=== PATIENT | male | born 1945 | race Caucasian/White ===

== ENCOUNTER 2016-09-20 13:23 | Inpatient (IN) | payer MEDICARE ==
[~2016-09-20] VITALS: Ht 175.3 cm; Wt 89.6 kg
[2016-09-20] VITALS (10 sets, daily range): BP systolic 128–138; BP diastolic 56–86; PULSE 82–91; RESP 20–25; O2SAT 86–99
[~2016-09-20 13:23] MED LIST: ALBU18HF INH; BECL8.7A5 INH; BECL8.7A6 INH; IPRA3AMP INH; LORA0.5T PO; METO25TA6 PO; MORP20SO PO; ROPI0.252 PO; SCOP1PAT TD
--- NOTE | 2016-09-20 14:43 | ED.REPORT ---
HPI-Dyspnea / Wheezing Date of Service Sep 20, 2016 ED Provider: History of Present Illness: trouble breathing for 2 to 3 days. new coughing. primary care is jorge appointment on tuesday. Very short of breath Nursing Notes Stated Complaint: SOB,WEAKNESSS Chief Complaint: Respiratory Distress Nursing Notes Reviewed: Yes Allergies: Coded Allergies: Penicillins (Verified Allergy, Severe, NEAR A CHILD, 09/20/16) Scheduled Metoprolol Tartrate (Metoprolol Tartrate) 25 Mg Tablet 25 MG PO BID Morphine Sulfate Oral Soln (Morphine Sulfate Oral Soln) 20 Mg/5 Ml Solution 5- 20 MG PO Q1H Ropinirole (Ropinirole) 0.25 Mg Tablet 0.5 MG PO HS Scopolamine (Transderm-Scop) 1 Each Patch.td72 1 EACH TD Q72H Scheduled PRN Albuterol Sulfate (Ventolin HFA Inhaler) 200 Puff/18 Gm Inhaler 2 PUFFS INH PRN For Shortness of Breath Beclomethasone Dipropionate (Qvar) 8.7 Gm Aer.w.adap 1 PUFF INH PRN For Shortness of Breath Beclomethasone Dipropionate (Qvar) 8.7 Gm Aer.w.adap 1 PUFF INH BID PRN PRN For Shortness of Breath Ipratropium/Albuterol Sulfate (Iprat-Albut 0.5-3(2.5) mg/3 mL Inhalant Soln) 3 Ml Ampul.neb 1 DOSE INH 1-5XDaily PRN PRN For Shortness of Breath Lorazepam (Lorazepam) 0.5 Mg Tablet 0.5 MG PO TID PRN PRN For Anxiety General Time Seen by MD: 14:42 Chief Complaint Shortness of breath Hx Obtained From: Patient Sudden in Onset?: No Onset Occurred: 3 days ago Past Medical History Past Medical History Notes: PCP: Dr. Dos Santos in [facility] Past Medical History ho ? DVT (completely unclear) Records from PCP obtain indicate: Hypertension Hematuria Flank pain COPD on O2, CPAP The PCPs records indicate on a multitude of visits that the patient has declined workup, labs, and is aware he may have cancer but has insisted that he "will not accept any cancer treatment" notes also indicate the patient's not been taking any of his medications and that he "just wants to smoke and enjoy himself and uses oxygen when he needs it" The notes in the great "high probably of atherosclerotic cardiovascular disease-but he is refused any intervention, will only take nitroglycerin when necessary, and is refused a chest x-ray" Reports: Asthma, COPD (severe), Diabetes mellitus Past Surgical History Hiatal hernia Smoking History Former Smoker Social History Other Social History: Good social support, Occupation lives with , one story house Ambulatory Status Independent Review of Systems Basic Review of Systems Eyes: Vision NL, No discharge Hematologic: No bleeding, No bruising Psychiatric: Normal thought content Physical Exam Initial Vital Signs Vital Signs (First) Date Time Temp Pulse Resp B/P Pulse Ox O2 Delivery O2 Flow Rate FiO2 09/20/16 13:36 36.9 89 22 138/83 86 Room Air 09/20/16 14:44 2 Initial VS: Reviewed, Vital signs normal Head / Eyes: Atraumatic, Normocephalic, PERRL ENT: Mucous membranes moist, Conjunctiva normal, No scleral icterus Abdomen / GI: Soft, Non-tender, No guarding, No rebound, No distention Back: No CVA tenderness Lymphatic: No lymphadenopathy Extremities: Vascular intact, Neuro intact, No swelling, No tenderness Skin: Warm, Dry, No cyanosis Neurologic: Alert, Oriented, Nonfocal Psychiatric: Mood/affect normal, Behavior normal, Normal thought content General/Constitutional: Awake, Alert Distress / Hydration: Positive: Distress moderate Neck: Atraumatic, Supple, No meningismus, Full range of motion, No adenopathy Diminished Breath Sounds: Positive: Decreased bilateral decreased breath sounds thru out lung beaver. faint exp wheezing noted Cardiovascular: Heart rate NL, Regular rhythm, Heart sounds NL, No gallop ENT: Atraumatic, Airway patent, Mucous membranes moist, Pharynx NL, No peritonsillar abscess Abdomen: Atraumatic, Soft, Non-tender, McBurney's non-tender Interpretation & Diagnostics Lab Results Interpretation Result Diagram: 09/20/16 1554 09/20/16 1554 Test 09/20/16 15:54 White Blood Count 11.7th/mm3 (3.8-10.1) Red Blood Count 4.44mil/mm3 (4.40-5.80) Hemoglobin 12.8g/dL (13.8-17.2) Hematocrit 40.1% (41.0-50.0) Mean Corpuscular Volume 90.3fL (81-100) Mean Corpuscular Hemoglobin 28.8pg (27.0-35.0) Mean Corpuscular Hemoglobin Concent 31.9% (32.0-37.0) Red Cell Distribution Width 15.0% (12.3-15.4) Platelet Count 286bil/L (150-400) Neutrophils (%) (Auto) 76.9% (40-74) Lymphocytes (%) (Auto) 10.7% (14-46) Monocytes (%) (Auto) 11.3% (4-12) Eosinophils (%) (Auto) 0.7% (0-5) Basophils (%) (Auto) 0.2% (0-3) Sodium Level 141mEq/L (134-144) Potassium Level 3.3mEq/L (3.5-5.2) Chloride Level 101mEq/L (97-108) Carbon Dioxide Level 23mmol/L (18-29) Blood Urea Nitrogen 25mg/dL (8-27) Creatinine 0.56mg/dL (0.76-1.27) Estimat Glomerular Filtration Rate 152mL/min (>59) Glucose Level 204mg/dL (60-99) Lactic Acid Level 1.0mmol/L (0.4-2.0) Calcium Level 9.1mg/dL (8.5-10.1) Total Bilirubin 0.4mg/dL (0.0-1.2) Aspartate Amino Transf (AST/SGOT) 22U/L (0-50) Alanine Aminotransferase (ALT/SGPT) 25U/L (0-44) Alkaline Phosphatase 78U/L (25-160) Troponin T 0.182ug/L (0.0-0.011) Pro-B-Type Natriuretic Peptide 81442is/mL (0-376) Total Protein 6.6g/dL (6.4-8.4) Albumin 3.5g/dL (3.4-5.0) Procalcitonin 0.07ng/mL (0.00-0.08) X-Ray Chest Interpretation Chest Xray Interpretation: PROCEDURE: X-RAY CHEST ONE VIEW, PORTABLE ([id number]) INDICATIONS: 71 year-old male with shortness of breath, weakness and fatigue. TECHNIQUE: One view of the chest was acquired. COMPARISON: [facility], CR, XR CHEST 1VW (PORTABLE), 12/18/2015, 10:29. [facility], CR, CHEST 2VW, 05/09/2012, 14:08. [facility], CR, CHEST 2VW, 03/03/2012, 10:17. FINDINGS: Surgical changes and devices: None. Lungs and pleura: No pleural effusions or pneumothorax. Lungs are clear, except for patchy retrocardiac opacities. Mediastinum: Mediastinal contours appear normal. Heart size is normal. Bones and chest wall: No suspicious bony lesions. Overlying soft tissues appear unremarkable. IMPRESSION: Patchy retrocardiac atelectasis, aspiration, or early pneumonia. Dictated by: Roddy Rosado M.D. on 09/20/2016 at 14:57 Approved by: Roddy Rosado M.D. on 09/20/2016 at 14:58 Re-Eval/Medical Decision Med Decision/Clinical Course 71 year old male who appears sicker than what the numbers show. Extremely short of breath with inability to speak more than a few words without gasping for air. Patient desires treatment at this time for conditions which might be helped with medication management. Chest x-ray indicates a possible pneumonia, troponin is elevated as is BNP, discussed with Dr. Devi, admission is indicated. No sign of paniac attack but does have evidence of pneumonia and chf Discharge & Departure Impression: Primary Impression: Respiratory distress Additional Impression: Pneumonia Laterality: unspecified laterality Disposition: ADMITTED TO HOSPITAL Referrals: Edison Bernal MD (PCP) EDSupervising Provider for APC: Wil Devi MD copies to: Edison Bernal MD, Sue ARNP Sep 20, 2016 14:42 Mariza Orantes Sep 20, 2016 14:42
--- NOTE | 2016-09-20 15:00 | DRSVH ---
PROCEDURE: X-RAY CHEST ONE VIEW, PORTABLE ([id number]) INDICATIONS: 71 year-old male with shortness of breath, weakness and fatigue. TECHNIQUE: One view of the chest was acquired. COMPARISON: [facility], CR, XR CHEST 1VW (PORTABLE), 12/18/2015, 10:29. [facility], CR, CHEST 2VW, 05/09/2012, 14:08. [facility], CR, CHEST 2VW, 03/03/2012, 10:17. FINDINGS: Surgical changes and devices: None. Lungs and pleura: No pleural effusions or pneumothorax. Lungs are clear, except for patchy retrocar diac opacities. Mediastinum: Mediastinal contours appear normal. Heart size is normal. Bones and chest wall: No suspicious bony lesions. Overlying soft tissues appear unremarkable. IMPRESSION: Patchy retrocardiac atelectasis, aspiration, or early pneumonia. Dictated by: Roddy Rosado M.D. on 09/20/2016 at 14:57 Approved by: Roddy Rosado M.D. on 09/20/2016 at 14:58
[2016-09-20] MEDS ORDERED: levoFLOXacin Inj 750 MG in IV Premix 1 EACH IV ONE (15:10)
[2016-09-20] MEDS ORDERED: Albuterol-Ipratropium 3 mL Inhalation Solution NEB ONE (15:10)
[2016-09-20] MEDS ORDERED: MethylprednisoLONE Sodium Succinate 62.5 mg/mL 2 mL Inj IVPUSH ONE (15:10)
[2016-09-20 15:57] LABS: BASOPHILS % (AUTO) 0.2 % (0-3); EOSINOPHILS % (AUTO) 0.7 % (0-5); MONOCYTES % (AUTO) 11.3 % (4-12); Mean Corpuscular Hemoglobin 28.8 pg (27.0-35.0); Mean Corpuscular Volume 90.3 fL (81-100); NEUTROPHILS % (AUTO) 76.9 % (40-74); Platelet Count 286 bil/L (150-400)
[2016-09-20 16:41] LABS: TROPONIN T 0.182 ug/L (0.0-0.011)
[2016-09-20] MEDS ORDERED: Albuterol 2.5 mg/3 mL Inhalation Solution NEB PRN (16:45)
[2016-09-20] MEDS ORDERED: Alum-Mag Hydrox-Simeth 30 mL Suspension PO PRN (16:45)
[2016-09-20] MEDS ORDERED: Polyethylene Glycol (PEG) 17 Gm Powder PO PRN (16:45)
--- NOTE | 2016-09-20 17:57 | PCM.HPMED ---
Subjective Date of Service Sep 20, 2016 Primary Provider: Admitting Physician: Cristóbal Rob MD Primary Care Physician: Joe Lowry MD Attending Physician: Cristóbal Rob MD Admit Status: From the Emergency Department, Admit to [facility], [facility] Telemetry Chief Complaint: SOB History of Present Illness: This is a 71 year old man with past medical history significant for severe emphysema on 2-3 L home O2, hematuria, and diabetes mellitus who presented to [facility] ED today with severe shortness of breath. The patient noted increased production of sputum and worsening SOB since last Tuesday. Patient states that he has chronic SOB and cough, but the cough has been more productive with brown phlegm. He denies any chest pain and heaviness. Other associated symptoms include generalized weakness, worsening orthopnea, and weight loss. He denies any fever, chills, headache, dizziness, nausea, vomiting, or abdominal pain. Of note, patient was admitted to the hospital for similar symptoms in November 2015 and was discharged on hospice. He states that he really liked Hospice Care , but he was doing better and so he was discharged from Hospice after 6 months. Patient also has history painless hematuria but has refused a work up as he would not like to be evaluated for the probability of cancer and would not like any treatment for it. He is aware that his COPD is a terminal illness and discussed his belief in being able to end his life on his own terms and against prolonging it unnecessarily. He again stated that he would like to be DNR/DNI and would not like to have any invasive procedures or major interventions. Patient has chronic decreased oral intake, and has lost 30lbs in the last 6 months. In the ED his vitals were T 36.9 HR 89, RR 22, BP 138/83, 86% on RA, which improved to 92-99% on 2L NC. He was given 1 L NS bolus and started on Levaquin. CXR showed patchy retrocardiac atelectasis, aspiration, or early pneumonia. Review of Systems: A comprehensive review of systems was conducted with the patient and found to be negative except as above in the History of Present Illness. Allergies Coded Allergies: Penicillins (Verified Allergy, Severe, NEAR A CHILD, 09/20/16) Home Medications Scheduled Metoprolol Tartrate (Metoprolol Tartrate) 25 Mg Tablet 25 MG PO BID Morphine Sulfate Oral Soln (Morphine Sulfate Oral Soln) 20 Mg/5 Ml Solution 5- 20 MG PO Q1H Ropinirole (Ropinirole) 0.25 Mg Tablet 0.5 MG PO HS Scopolamine (Transderm-Scop) 1 Each Patch.td72 1 EACH TD Q72H Scheduled PRN Albuterol Sulfate (Ventolin HFA Inhaler) 200 Puff/18 Gm Inhaler 2 PUFFS INH PRN For Shortness of Breath Beclomethasone Dipropionate (Qvar) 8.7 Gm Aer.w.adap 1 PUFF INH PRN For Shortness of Breath Beclomethasone Dipropionate (Qvar) 8.7 Gm Aer.w.adap 1 PUFF INH BID PRN PRN For Shortness of Breath Ipratropium/Albuterol Sulfate (Iprat-Albut 0.5-3(2.5) mg/3 mL Inhalant Soln) 3 Ml Ampul.neb 1 DOSE INH 1-5XDaily PRN PRN For Shortness of Breath Lorazepam (Lorazepam) 0.5 Mg Tablet 0.5 MG PO TID PRN PRN For Anxiety PMH COPD Hematuria Smoking history possible history of DVT Hypertension Diabetes mellitus Surgical History Hiatal Hernia Surgical History Back surgery. Patient had other surgeries but he does not know. Family History Mother had COPD, it was her cause of . She also had DM. Father had AK at 58 yo. Social History Hx Alcohol Use: Yes ("not much any more") Hx Substance Use: No Hx Tobacco Use: Yes Smoking Status: Current Every Day Smoker (50+ pack years) Living Arrangement: with Family Exam Vital Signs Vital Sign - Last Date Time Temp Pulse Resp B/P Pulse Ox O2 Delivery O2 Flow Rate FiO2 09/20/16 17:25 85 23 128/56 89 Room Air 09/20/16 16:47 3 09/20/16 13:36 36.9 Exam General: in moderate respiratory distress, older than stated age, conversational dyspnea HEENT: Normocephalic, atraumatic. Oropharynx free of erythema and cobble stoning with dry mucosa. Neck: Supple with full range of motion. No jugular venous distension. No lymphadenopathy or thyromegaly. Cardiovascular: Regular rate and rhythm with no murmurs, rubs, or gallops appreciated Pulmonary: Decreased breath sound on the left lung base. Diffuse wheezing and crackles. Mildly labored respiratory effort with no use of accessory muscles. Abdomen: Bowel tones present. Soft, nontender, obese, nondistended. No hepatosplenomegaly or masses appreciated. Extremities: Mild-moderate pitting edema in the bilateral LE. No clubbing, cyanosis. Skin: Normal temperature, turgor, and texture; no rash, ulcers, or subcutaneous nodules appreciated. Neurological: Cranial nerves grossly intact. Normal muscle strength, tone, and bulk. Psychiatric: Normal mood and affect. Alert and oriented to person, place, and time. Lab and Diagnostics Result Diagram: 09/20/16 1554 09/20/16 1554 X-Rays, CTs and MRIs PROCEDURE: X-RAY CHEST ONE VIEW, PORTABLE IMPRESSION: Patchy retrocardiac atelectasis, aspiration, or early pneumonia. Dictated by: Roddy Rosado M.D. on 09/20/2016 at 14:57 12-lead ECG Sinus rhythm HR 86. No significant change in rhythm compared to prior ECG. Cardiac Echo Impressions Interpretation Summary from Echo on 12/18/15 The left ventricle is grossly normal size. There is global ventricular dysfunction. The ejection fraction is estimated to be 35-40%. Decreased LV velocity indicative of reduced cadiac output. Even with Definity contrast, LV wall motion is still difficult to evaluate. But, there appears to be significant hypokinesis along the inferolateral wall. The left atrium grossly appears normal in size. The right atrium grossly appears normal in size. There is mild mitral regurgitation. There is mild tricuspid regurgitation. There is no other significant valvular heart disease. The aortic root is mildly dilated. The ascending aorta is mildly enlarged. Assessment & Plan This is a 71 year old man with past medical history significant for severe emphysema, hematuria, and diabetes mellitus who presented to [facility] ED with severe shortness of breath. Acute Respiratory Failure on chronic respiratory failure, hypoxic, multifactorial, POA and active. -Likely due to a combination of COPD exacerbation and probable CHF decompensation. -Patient placed on NS at 2L and had good result. BPAP PRN -Given a dose of solumedrol in ED. Will continue with Solu-Medrol 125mg IV Q8 overnight. -DuoNebs PRN -Procalcitonin negative, doubt there is really a component of PNA. -Patient was given a dose of Levofloxacin in the ED. Blood and sputum culture pending. -Will continue to monitor his symptoms overnight and consider antibiotics if he has signs/symptoms of infection. COPD, in exacerbation. POA and active. -On home 2-3L O2 -Pt presents with increasing SOB and sputum production. -Management as above -Patient would like to have Hospice again. Will consult Palliative Care when they are back from the holiday. Will have group social worker consult for possible Hospice. Elevated troponin, present on admission, POA and active. -Patient does not want invasive intervention and is not on medical therapy besides Metoprolol 25mg BID. Will resume this. -EKG with no changes. -Patient currently symptom free -Trend troponin. -ASA 325 mg now, ASA 81 mg daily -Lipitor while he is in the hospital. -ECHO in the morning Possible systolic CHF decompensation, POA and acute. -Patient reports worsening LE edema and has some [place] exam[place] [address]. -Last Echo in 11/2015 showed EF of 35-40% -Patient is not interested in aggressive medical management. Will give him a dose of Lasix 40mg IV tonight and monitor his symptoms. -Strict I/O and daily weight. Diabetes Mellitus, type 2, POA. -Patient refusing medical management at home -High dose correctional Lispro -Diabetic diet Leukocytosis, POA, acute, POA. -Likely reactive, uncertain that this truly represents PNA -Will follow, may continue antibiotics later if needed Hematuria, chronic -Patient does not want this evaluated Code status: DNR/DNI. Which was confirmed with the patient. He would like Palliative/Hospice Care. Pain Evaluation: Adequate Pain Control GI Prophylaxis: H2 maria teersa VTE Prophylaxis: Sub-Q Enoxaparin VTE Mechanical Devices: Anti-Embolic stockings Resuscitation Status: DNR/DNI:Do Not Resuscitate/Intubate Time spent 50 minutes Attending Statement Patient seen and examined with house staff. Agree with all attached documentation. Estephania Romano DO Sep 20, 2016 17:34 Cristóbal Rob MD Sep 21, 2016 13:31
[2016-09-20] MEDS ORDERED: Potassium Chloride 20 mEq SR Tablet PO ONE (18:15)
[2016-09-20] MEDS ORDERED: Furosemide 10 mg/mL 4 mL Inj IVPUSH ONE (18:45)
--- NOTE | 2016-09-20 18:49 | NUR ---
Arrive to [facility] Rm 2026 from ED Pt arrived to [facility] 2.5L O2 NC, A&Ox3, able to transfer with use of cane from gerney to bed. SPO2 91% on 2.5L switched to Oxymask with 5L, SPO2 96%. Cough noted and states "I have had cough for 5-6 years." LURDES VOSS, at bs. IV NS started as ordered. Tucked into bed.
[2016-09-20] MEDS ORDERED: LORazepam 0.5 mg Tablet PO PRN (18:50)
[2016-09-20] MEDS: Albuterol-Ipratropium 3 mL Inhalation Solution NEB SCH ×2 (19:07→21:00)
[2016-09-20] MEDS ORDERED: Glucose 40% Oral Gel 15 Gm Tube PO PRN (19:40)
[2016-09-20] MEDS ORDERED: Dextrose 10% 250 ML IV PRN (19:40)
[2016-09-20] MEDS: 0.9% Sodium Chloride 1,000 ML IV SCH (20:23)
[2016-09-20] MEDS ORDERED: Insulin Human REGular 300 Unit/3 mL Inj SUBQ SCH (20:30)
[2016-09-20] MEDS: MethylprednisoLONE Sodium Succinate 62.5 mg/mL 2 mL Inj IVPUSH SCH (20:39)
--- NOTE | 2016-09-20 21:00 | NUR ---
Admit Admit completed. Pt alert and oriented, but fair historian. Admits to frequent recent falling "off my barstool" but refuses to use bedside commode. Gait is unsteady and he is a falls risk. Personal alarm on and encouraged to call for help when getting up. He has been using call light appropriately to call for assistance. Initially declined all HS meds, but accepted them after purpose explained in detail for each. Sats around 92% on 2 liters nasal cannula. Dyspneic with exertion.
[2016-09-20] MEDS: Insulin LISPRO 300 Unit/3 mL Inj SUBQ SCH (21:27)
[2016-09-21 00:30] VITALS: BP 131/76; PULSE 78; RESP 18; O2SAT 92
[2016-09-21] MEDS: Albuterol-Ipratropium 3 mL Inhalation Solution NEB SCH ×3 (01:00→08:06)
[2016-09-21] MEDS ORDERED: Albuterol HFA 60 Puff 8 Gm Inhaler INHALATION PRN (01:30)
[2016-09-21] MEDS: MethylprednisoLONE Sodium Succinate 62.5 mg/mL 2 mL Inj IVPUSH SCH ×2 (02:38→10:16)
[2016-09-21] MEDS: 0.9% Sodium Chloride 1,000 ML IV SCH ×2 (02:51→13:15)
[2016-09-21 05:04] VITALS: BP 131/80; PULSE 77; RESP 20; O2SAT 94
[2016-09-21 05:18] LABS: BASOPHILS % (AUTO) 0.1 % (0-3); EOSINOPHILS % (AUTO) 0 % (0-5); MONOCYTES % (AUTO) 1.6 % (4-12); Mean Corpuscular Hemoglobin 28.7 pg (27.0-35.0); Mean Corpuscular Volume 90.9 fL (81-100); NEUTROPHILS % (AUTO) 93.4 % (40-74); Platelet Count 273 bil/L (150-400)
[2016-09-21 05:39] LABS: Magnesium 1.7 mg/dL (1.6-2.6)
--- NOTE | 2016-09-21 05:57 | NUR ---
Diarrhea Pt c/o diarrhea and requested kaopectate. Has had 4 watery brown stools. MD notified and orders for c dif screen. Pt denies abdominal pain or other symptoms and states he has had chronic diarrhea for years.
[2016-09-21 08:00] VITALS: PULSE 91; RESP 20; O2SAT 92
[2016-09-21] MEDS: Insulin LISPRO 300 Unit/3 mL Inj SUBQ SCH ×2 (08:00→12:00)
[2016-09-21 09:18] VITALS: BP 138/86; PULSE 98; RESP 20; O2SAT 97
--- NOTE | 2016-09-21 10:52 | PCM.PNMED ---
Subjective Date of Service Sep 21, 2016 Subjective Overnight, patient had 4 watery brown diarrhea and requested Kaopectate. He denied abdominal pain or other symptoms and states he has had chronic diarrhea for years. This morning, patient refuses to take Insulin. He repeatedly says that "I don't care if my blood sugar is 1000" and "this is not living." He reports improvement of his breathing and has no other complaint today. Exam Vital Signs Vital Sign - Last Date Time Temp Pulse Resp B/P Pulse Ox O2 Delivery O2 Flow Rate FiO2 09/21/16 05:04 36.7 77 20 131/80 94 Nasal Cannula 1.50 Exam General: in no acute distress, older than stated age, conversational dyspnea improves, patient can speak in full sentences today. HEENT: Normocephalic, atraumatic. Oropharynx free of erythema and cobble stoning with dry mucosa. Neck: Supple with full range of motion. No jugular venous distension. No lymphadenopathy or thyromegaly. Cardiovascular: Regular rate and rhythm with no murmurs, rubs, or gallops appreciated Pulmonary: Decreased breath sound throughout. Diffuse crackles. No increase in respiratory effort with no use of accessory muscles. Abdomen: Bowel tones present. Soft, nontender, obese, nondistended. No hepatosplenomegaly or masses appreciated. Extremities: Moderate pitting edema in the bilateral LE. No clubbing, cyanosis. Skin: Normal temperature, turgor, and texture; no rash, ulcers, or subcutaneous nodules appreciated. Neurological: Cranial nerves grossly intact. Normal muscle strength, tone, and bulk. Psychiatric: Normal mood and affect. Alert and oriented to person, place, and time. IVs and Medications Medications Reviewed: Medications were reviewed in detail Lab and Diagnostics Result Diagram: 09/21/16 0455 09/21/16 0455 X-Rays, CTs and MRIs PROCEDURE: X-RAY CHEST ONE VIEW, PORTABLE IMPRESSION: Patchy retrocardiac atelectasis, aspiration, or early pneumonia. Dictated by: Roddy Rosado M.D. on 09/20/2016 at 14:57 12-lead ECG Sinus rhythm HR 86. No significant change in rhythm compared to prior ECG. Cardiac Echo Impressions Interpretation Summary from Echo on 12/18/15 The left ventricle is grossly normal size. There is global ventricular dysfunction. The ejection fraction is estimated to be 35-40%. Decreased LV velocity indicative of reduced cadiac output. Even with Definity contrast, LV wall motion is still difficult to evaluate. But, there appears to be significant hypokinesis along the inferolateral wall. The left atrium grossly appears normal in size. The right atrium grossly appears normal in size. There is mild mitral regurgitation. There is mild tricuspid regurgitation. There is no other significant valvular heart disease. The aortic root is mildly dilated. The ascending aorta is mildly enlarged. Assessment & Plan This is a 71 year old man with past medical history significant for severe emphysema, hematuria, and diabetes mellitus who presented to [facility] ED with severe shortness of breath. Acute Respiratory Failure, hypoxic, multifactorial, POA and improved. -Likely due to a combination of COPD exacerbation and probable CHF decompensation. -Patient placed on NS at 2L and had good result. -Patient received Solu-Medrol 125mg IV Q8 overnight. Will change to Prednisone 60mg PO daily today. -DuoNebs PRN -Procalcitonin negative, doubt there is really a component of PNA. -Patient was given a dose of Levofloxacin in the ED. Blood and sputum culture pending. -Will continue to monitor his symptoms overnight and consider antibiotics if he has signs/symptoms of infection. COPD, in exacerbation, POA and improved. -On home 2-3L O2 -Pt presents with increasing SOB and sputum production. -Management as above -Patient would like to have Hospice again. Will consult Palliative Care when they are back from the holiday. Will have case management social worker consult for possible Hospice. Elevated troponin, present on admission, and improved. -Patient does not want invasive intervention and is not on medical therapy besides Metoprolol 25mg BID. Will resume this. -EKG with no changes. -Patient currently symptom free -Trend troponin. -ASA 81 mg daily -Lipitor while he is in the hospital. He does not take it as outpatient. -ECHO in the morning Possible systolic CHF decompensation, POA, improved. -Patient reports worsening LE edema and has some rales [place] exam[place] [address]. -Last Echo in 11/2015 showed EF of 35-40%. Repeat Echo today. -Patient is not interested in aggressive medical management. Will give him a dose of Lasix 40mg IV tonight and monitor his symptoms. -Strict I/O and daily weight. Diabetes Mellitus, type 2. POA and stable. -Patient refusing medical management at home -He refuses the correctional Lispro as well. -Diabetic diet Leukocytosis, POA, resolved. -Likely reactive, uncertain that this truly represents PNA Hematuria, chronic -Patient does not want this evaluated Code status: DNR/DNI. Which was confirmed with the patient. He would like Palliative/Hospice Care. SW consulted. Pain Evaluation: Adequate Pain Control GI Prophylaxis: H2 maria teresa VTE Prophylaxis: Sub-Q Enoxaparin VTE Mechanical Devices: Anti-Embolic stockings Resuscitation Status: DNR/DNI:Do Not Resuscitate/Intubate Time spent 40 min Attending Statement Patient seen and examined with house staff. Agree with all attached documentation. Estephania Romano DO Sep 21, 2016 06:54 Cristóbal Rob MD Sep 21, 2016 16:45
[2016-09-21 11:07] VITALS: PULSE 82
[2016-09-21 12:35] VITALS: BP 134/84; PULSE 86; RESP 20; O2SAT 96
[2016-09-21] MEDS ORDERED: Albuterol-Ipratropium 3 mL Inhalation Solution NEB PRN (13:00)
--- NOTE | 2016-09-21 14:36 | PCM.DIMED ---
Estephania Romano DO 09/21/16 1428: Discharge Instructions Date of Service Sep 21, 2016 Dates of Hospitalization Sep 20, 2016 at 16:55 Discharge Diagnosis Discharge Diagnosis Acute Respiratory Failure, hypoxic, multifactorial, active. COPD, in exacerbation, improved. Elevated troponin, present on admission, active. Possible systolic CHF decompensation, POA, acute. Diabetes Mellitus, type 2, uncontrolled. Leukocytosis, POA, resolved. Hematuria, chronic. Medication Instructions Additional med instructions - Take the Prednisone 10mg as followed: take 4 tablets by oral route once daily for 3 days, then taper to 3 tabs daily for 3 days, 2 tabs daily for 3 days, and 1 tab daily for 3 days. - Take a baby Aspirin (81mg) once daily and a Lipitor 40mg once daily. Prescriptions given. - You declined diabetic medications. Please talk to your doctor if you change your mind. - Continue your other medications as directed. Diet Discharge Diet: Low fat, Low Sodium, Heart Healthy, Diabetic Activity Discharge Activity: Limited until seen by PCP Call your provider Call your provider for: Fever or Chills, Shortness of breath, Chest pain Patient Instructions Patient Instructions - You were admitted to the hospital for COPD exacerbation. Your symptoms improved overnight and you are stable for discharge. - Please take the Prednisone as directed until you are done. This is a steroid medication that will help your respiratory symptoms. - You have multiple medical issues and thus need to take medications as directed. - Please take the medications as prescribed. I added some heart medications that will control your blood pressure. - Because you did not want any diabetic medications, we did not prescribe any med for diabetes. However, I highly encourage that you talk to your doctor about diabetes management as your blood sugar has been high. - Please STOP smoking or at least try to cut down. DO NOT SMOKE while you are on Oxygen. Continue to use the Oxygen at home as needed. - No change in the inhaler and nebulizer treatments. Continue as directed. - Follow up with your regular doctor in 1 week. - Go to the ER if you develop worsening shortness of breath, chest pain, cough, fever, chills, dizziness, or change in mental status. - The Hospice team will contact you regarding their evaluation for Hospice Care. You are doing well right now and will likely not meet the Hospice criteria. Follow-up Provider: Creelman, Hansel C MD Follow-up with PCP in: 1 week Cristóbal Rob MD 09/21/16 1646: Discharge Instructions Attending's Statement Patient seen and examined with house staff. Agree with all attached documentation. Estephania Romano DO Sep 21, 2016 14:28 Cristóbal Rob MD Sep 21, 2016 16:46
--- NOTE | 2016-09-21 14:39 | DRSVH ---
[facility] [address] [place] [address] Echocardiogram Report Name: ESTEPHANIE SOSA JStudy Date: 09/21/2016 Height: 69 in Hospital Exam Location: [facility] Weight: 19 8 lb Gender: Male BSA: 2.1 m2 : 1945 Age: 71 yrs BP: 131/80 mmHg Reason For Study: Congestive Heart Failure Ordering Physician: HOSPITALIST [facility] Performed By: Jen Kaba Referring Physician: Tonya Polk Interpretation Summary Left ventricular systolic function is moderately reduced with the ejection fraction estimated to be around 35% with moderate global hypokinesis that is worse in the posterior wall which appears to be akinetic. This is likely unchanged compared to the previous study. The left ventricle is mildly dilated and is slightly larger compared to the previous study. Assessment of diastolic parameters suggests a pseudonormalization pattern, consistent with elevated filling pressures. possibly higher compared to the previous study. The right ventricle is at the upper limits of normal in size and right ventricular systolic function is at the lower limits of normal. Right ventricular systolic pressure is estimated to be 40 mmHg plus the clinically estimated CVP which cannot be estimated on this exam. RVSP is likely higher compared to the previous study. The left atrium is moderately dilated and has significantly increased in size since the prior echo exam. The right atrium is borderline dilated but unchanged since the prior echo exam. There is mild mitral regurgitation that is unchanged compared to the previous study. There is no other significant valvular heart disease. The aortic root is mildly dilated and is unchanged compared to the previous study. The ascending aorta is moderately enlarged and has significantly larger compared to the previous study. Procedure: A two-dimensional transthoracic echocardiogram with color flow and Doppler was performed. The study quality was technically adequate. A contrast injection of Definity was performed to improve assessment of LV function. Comparison is made with the echocardiogram of 12/18/2015. The patient was in normal sinus rhythm during the exam. Left Ventricle: The left ventricle is mildly dilated. This is slightly larger compared to the previous study. Left ventricular wall thickness is mildly increased. Left ventricular systolic function is moderately reduced. Left ventricular ejection fraction is estimated to be around 35%. There is moderate global hypokinesis of the left ventricle. Worse in the posterior wall which appears to be akinetic. This is likely unchanged compared to the previous study. Assessment of diastolic parameters suggests a pseudonormalization pattern, consistent with elevated filling pressures. This is possibly higher compared to the previous study. Right Ventricle: The right ventricle is at the upper limits of normal in size. Right ventricular systolic function is at the lower limits of normal. This is was not well seen on compared to the previous study. Atria: The left atrium is moderately dilated. The left atrium has significantly increased in size since the prior echo exam. The right atrium is borderline dilated. The right atrium has remained unchanged in size since the prior echo exam. Mitral Valve: There is mild mitral annular calcification. There is mild mitral regurgitation. The mitral regurgitant jet is eccentrically directed. This is unchanged compared to the previous study. Aortic Valve: The aortic valve is trileaflet. The aortic valve is slightly calcified. The aortic valve opens well. No aortic regurgitation is present. Tricuspid Valve: The tricuspid valve is not well visualized, but is grossly normal. There is trace tricuspid regurgitation. Right ventricular systolic pressure is estimated to be 40 mmHg plus the clinically estimated CVP which cannot be estimated on this exam. This is likely higher compared to the previous study. Pulmonic Valve: The pulmonic valve is not well seen, but is grossly normal. There is a trace or physiologic amount of pulmonic regurgitation. There is no other significant valvular heart disease. Great Vessels: The aortic root is mildly dilated. This is unchanged compared to the previous study. The ascending aorta is moderately enlarged. This is significantly larger compared to the previous study. The inferior vena cava was not visualized. Pericardium/ Pleura There is no pericardial effusion. MMode/2D Measurements & Calculations LVIDd: 6.3 cm RA long axis: 5.6 cm LVOT diam LVIDs: 5.4 cm LA A2 area: 20.7 cm FS: 13.3 % LA A4 area: 26.8 cm RA area: 20.6 cm Ao root diam EPSS: 1.3 cm LA length (vol): 5.6 cm RA vol: 64.5 ml IVSd: 1.1 cm LA vol: 83.9 ml RA : 31.4 ml/m2 asc Aorta LVPWd: 0.79 cm LA vol index Diam: 4.6 cm : 40.8 ml/m2 EDV(MOD-sp2) LV chao. diameter/BSA LV sys. diameter/BSA RVD1 (basal) (cm/m^2): 3.0 (cm/m^2): 2.6 : 4.1 cm ESV(MOD-sp2) EF(MOD-sp2) RVD2 (mid) TAPSE: 1.9 cm : 2.5 cm Doppler Measurements & Calculations Ao V2 max MV E max reggie MV E/A: 1.1 TR max reggie : 70.9 cm/sec : 78.4 cm/sec Med Peak E' Reggie : 315.9 cm/sec Ao max PG MV A max reggie TR max PG : 2.0 mmHg : 71.8 cm/sec E/E' med: 17.3 : 39.9 mmHg Ao mean PG MV P1/2t: 42.5 msec Lat Peak E' Reggie PA V2 max : 43.0 cm/sec LVOT Max Reggie E/E' lat: 19.8 PA mean PG : 58.9 cm/sec E/e' average : 0.44 mmHg PA Accel Time PENNY(I,D): 3.0 cm : 0.08 sec sev ratio MV dec time MV P1/2t max reggie Ao V2 mean LV V1 max PG : 0.14 sec : 54.4 cm/sec MVA(P1/2t): 5.2 cm2 Ao V2 VTI: 14.7 cm LV V1 VTI PENNY(V,D): 3.2 cm2 : 11.5 cm PA V2 mean PENNY indexed to BSA : 31.6 cm/sec (cm^2/m^2): 1.5 Reading Physician:02:38 PM
[2016-09-21] MEDS ORDERED: ASPI81TA3 PO (14:40)
[2016-09-21] MEDS ORDERED: PRE10 PO (14:40)
[2016-09-21] MEDS ORDERED: ATOR40TA69 PO (14:40)
--- NOTE | 2016-09-21 14:46 | PCM.DC.MED ---
Discharge Summary Date of Service Sep 21, 2016 Dates of Hospitalization Date of Hospital Admission Sep 20, 2016 at 16:55 Date of Discharge: Sep 21, 2016 Providers: Admitting Physician: Cristóbal Rob MD Primary Care Physician: Joe Lowry MD Attending Physician: Cristóbal Rob MD Diagnosis at Time of Discharge Diagnosis at Time of Discharge Acute Respiratory Failure, hypoxic, multifactorial, active. COPD, in exacerbation, improved. Elevated troponin, present on admission, active. Possible systolic CHF decompensation, POA, acute. Diabetes Mellitus, type 2, uncontrolled. Leukocytosis, POA, resolved. Hematuria, chronic. Procedures XRay, CTs & MRIs PROCEDURE: X-RAY CHEST ONE VIEW, PORTABLE IMPRESSION: Patchy retrocardiac atelectasis, aspiration, or early pneumonia. Dictated by: Roddy Rosado M.D. on 09/20/2016 at 14:57 ECG 12 Lead Sinus rhythm HR 86. No significant change in rhythm compared to prior ECG. Cardiac Echo Impression Interpretation Summary Left ventricular systolic function is moderately reduced with the ejection fraction estimated to be around 35% with moderate global hypokinesis that is worse in the posterior wall which appears to be akinetic. This is likely unchanged compared to the previous study. The left ventricle is mildly dilated and is slightly larger compared to the previous study. Assessment of diastolic parameters suggests a pseudonormalization pattern, consistent with elevated filling pressures. possibly higher compared to the previous study. The right ventricle is at the upper limits of normal in size and right ventricular systolic function is at the lower limits of normal. Right ventricular systolic pressure is estimated to be 40 mmHg plus the clinically estimated CVP which cannot be estimated on this exam. RVSP is likely higher compared to the previous study. The left atrium is moderately dilated and has significantly increased in size since the prior echo exam. The right atrium is borderline dilated but unchanged since the prior echo exam. There is mild mitral regurgitation that is unchanged compared to the previous study. There is no other significant valvular heart disease. The aortic root is mildly dilated and is unchanged compared to the previous study. The ascending aorta is moderately enlarged and has significantly larger compared to the previous study. Brief History This is a 71 year old man with past medical history significant for severe emphysema on 2-3 L home O2, hematuria, and diabetes mellitus who presented to [facility] ED today with severe shortness of breath. The patient noted increased production of sputum and worsening SOB since last Tuesday. Patient states that he has chronic SOB and cough, but the cough has been more productive with brown phlegm. He denies any chest pain and heaviness. Other associated symptoms include generalized weakness, worsening orthopnea, and weight loss. He denies any fever, chills, headache, dizziness, nausea, vomiting, or abdominal pain. Of note, patient was admitted to the hospital for similar symptoms in November 2015 and was discharged on hospice. He states that he really liked Hospice Care , but he was doing better and so he was discharged from Hospice after 6 months. Patient also has history painless hematuria but has refused a work up as he would not like to be evaluated for the probability of cancer and would not like any treatment for it. He is aware that his COPD is a terminal illness and discussed his belief in being able to end his life on his own terms and against prolonging it unnecessarily. He again stated that he would like to be DNR/DNI and would not like to have any invasive procedures or major interventions. Patient has chronic decreased oral intake, and has lost 30lbs in the last 6 months. In the ED his vitals were T 36.9 HR 89, RR 22, BP 138/83, 86% on RA, which improved to 92-99% on 2L NC. He was given 1 L NS bolus and started on Levaquin. CXR showed patchy retrocardiac atelectasis, aspiration, or early pneumonia. Hospital Course 71 year old man with past medical history significant for severe emphysema, hematuria, and diabetes mellitus who presented to [facility] ED with severe shortness of breath. Acute Respiratory Failure, hypoxic, multifactorial, active. -Likely due to a combination of COPD exacerbation and probable CHF decompensation. -Patient placed on NS at 2L and had good result. -Patient received Solu-Medrol 125mg IV Q8 overnight. He was discharged with Prednisone 40mg daily with tapering dose for a total of 12 days. -DuoNebs PRN -Procalcitonin negative, doubt there is really a component of PNA. -Patient was given a dose of Levofloxacin in the ED. Blood and sputum culture pending. -No indication for antibiotics as he had no signs/symptoms of infection. COPD, in exacerbation, improved. -On home 2-3L O2 -Pt presents with increasing SOB and sputum production. -Management as above -Patient would like to have Hospice again. Will consult Palliative Care when they are back from the holiday. Will have social work specialist consult for possible Hospice. Elevated troponin, present on admission, chronic. -Patient does not want invasive intervention and is not on medical therapy besides Metoprolol 25mg BID. Will resume this. -EKG with no changes. Trop is not significantly elevated compared to prior levels. -Patient currently symptom free -ASA 81 mg daily -Lipitor while he is in the hospital. He does not take it as outpatient. Recommended the patient to continue taking it at discharge. Possible systolic CHF decompensation, POA, acute. -Patient reports worsening LE edema and has some rales on exam[place] [address]. -Last Echo in 11/2015 showed EF of 35-40%. Repeat ECHO reports no significant changes compared to previous Echo. -Patient is not interested in aggressive medical management. -Strict I/O and daily weight. Diabetes Mellitus, type 2 -Patient refusing medical management at home -He refuses the correctional Lispro as well. -Diabetic diet Leukocytosis, POA, resolved. -Likely reactive, uncertain that this truly represents PNA Hematuria, chronic -Patient does not want this evaluated Code status: DNR/DNI. Which was confirmed with the patient. He would like Palliative/Hospice Care. SW consulted. Patient was admitted under inpatient for expected stay of longer than 2 midnights due to severity of his medical issues and complexity of the treatment plans. However, patient improved rapidly overnight and was ready for discharge. Exam Vital Signs (Last) Date Time Temp Pulse Resp B/P Pulse Ox O2 Delivery O2 Flow Rate FiO2 09/21/16 11:07 82 09/21/16 09:18 Supplement Oxygen 09/21/16 09:18 36.7 20 138/86 97 1.50 Exam General: in no acute distress, older than stated age, conversational dyspnea improves, patient can speak in full sentences today. HEENT: Normocephalic, atraumatic. Oropharynx free of erythema and cobble stoning with dry mucosa. Neck: Supple with full range of motion. No jugular venous distension. No lymphadenopathy or thyromegaly. Cardiovascular: Regular rate and rhythm with no murmurs, rubs, or gallops appreciated Pulmonary: Decreased breath sound throughout. Diffuse crackles. No increase in respiratory effort with no use of accessory muscles. Abdomen: Bowel tones present. Soft, nontender, obese, nondistended. No hepatosplenomegaly or masses appreciated. Extremities: Moderate pitting edema in the bilateral LE. No clubbing, cyanosis. Skin: Normal temperature, turgor, and texture; no rash, ulcers, or subcutaneous nodules appreciated. Neurological: Cranial nerves grossly intact. Normal muscle strength, tone, and bulk. Psychiatric: Normal mood and affect. Alert and oriented to person, place, and time. Test 09/20/16 15:54 09/21/16 04:55 Hemoglobin A1c 8.1% (4.8-5.6) Lactic Acid Level 1.0mmol/L (0.4-2.0) Troponin T 0.182ug/L (0.0-0.011) Pro-B-Type Natriuretic Peptide 39374ze/mL (0-376) Procalcitonin 0.07ng/mL (0.00-0.08) White Blood Count 8.2th/mm3 (3.8-10.1) Red Blood Count 4.18mil/mm3 (4.40-5.80) Hemoglobin 12.0g/dL (13.8-17.2) Hematocrit 38.0% (41.0-50.0) Mean Corpuscular Volume 90.9fL (81-100) Mean Corpuscular Hemoglobin 28.7pg (27.0-35.0) Mean Corpuscular Hemoglobin Concent 31.6% (32.0-37.0) Red Cell Distribution Width 14.9% (12.3-15.4) Platelet Count 273bil/L (150-400) Neutrophils (%) (Auto) 93.4% (40-74) Lymphocytes (%) (Auto) 4.8% (14-46) Monocytes (%) (Auto) 1.6% (4-12) Eosinophils (%) (Auto) 0% (0-5) Basophils (%) (Auto) 0.1% (0-3) Sodium Level 140mEq/L (134-144) Potassium Level 4.0mEq/L (3.5-5.2) Chloride Level 100mEq/L (97-108) Carbon Dioxide Level 26mmol/L (18-29) Blood Urea Nitrogen 22mg/dL (8-27) Creatinine 0.71mg/dL (0.76-1.27) Estimat Glomerular Filtration Rate 116mL/min (>59) Glucose Level 307mg/dL (60-99) Calcium Level 8.7mg/dL (8.5-10.1) Magnesium Level 1.7mg/dL (1.6-2.6) Total Bilirubin 0.4mg/dL (0.0-1.2) Aspartate Amino Transf (AST/SGOT) 15U/L (0-50) Alanine Aminotransferase (ALT/SGPT) 21U/L (0-44) Alkaline Phosphatase 73U/L (25-160) Total Protein 5.9g/dL (6.4-8.4) Albumin 3.6g/dL (3.4-5.0) Discharge Medications Discharge Medications Aspirin Chew (Aspirin Chew) 81 Mg Chew 81 MG PO DAILY Prescribed by: ELVIS HOFFMAN DO Atorvastatin Calcium (Atorvastatin Calcium) 40 Mg Tablet 40 MG PO HS Prescribed by: ELVIS HOFFMAN DO Metoprolol Tartrate (Metoprolol Tartrate) 25 Mg Tablet 25 MG PO BID (Reported) Morphine Sulfate Oral Soln (Morphine Sulfate Oral Soln) 20 Mg/5 Ml Solution 5- 20 MG PO Q1H Prescribed by: SHUBHAM BOATENG DO Prednisone (PredniSONE) 10 Mg Tablet 10 MG PO DAILY Take 4 tabs for 3 days, then taper to 3 tabs for 3 days, 2 tabs for 3 days, and 1 tab for 3 days. Prescribed by: ELVIS HOFFMAN DO Ropinirole (Ropinirole) 0.25 Mg Tablet 0.5 MG PO HS (Reported) Scopolamine (Transderm-Scop) 1 Each Patch.td72 1 EACH TD Q72H Prescribed by: SHUBHAM BOATENG DO As needed Albuterol Sulfate (Ventolin HFA Inhaler) 200 Puff/18 Gm Inhaler 2 PUFFS INH PRN For Shortness of Breath (Reported) Beclomethasone Dipropionate (Qvar) 8.7 Gm Aer.w.adap 1 PUFF INH PRN For Shortness of Breath (Reported) Beclomethasone Dipropionate (Qvar) 8.7 Gm Aer.w.adap 1 PUFF INH BID PRN PRN For Shortness of Breath (Reported) Ipratropium/Albuterol Sulfate (Iprat-Albut 0.5-3(2.5) mg/3 mL Inhalant Soln) 3 Ml Ampul.neb 1 DOSE INH 1-5XDaily PRN PRN For Shortness of Breath (Reported) Lorazepam (Lorazepam) 0.5 Mg Tablet 0.5 MG PO TID PRN PRN For Anxiety Prescribed by: SHUBHAM BOATENG, DO Additional med instructions - Take the Prednisone 10mg as followed: take 4 tablets by oral route once daily for 3 days, then taper to 3 tabs daily for 3 days, 2 tabs daily for 3 days, and 1 tab daily for 3 days. - Take a baby Aspirin (81mg) once daily and a Lipitor 40mg once daily. Prescriptions given. - You declined diabetic medications. Please talk to your doctor if you change your mind. - Continue your other medications as directed. Followup Plan Disposition: Home Discharge Diet: Low fat, Low Sodium, Heart Healthy, Diabetic Discharge Activity: Limited until seen by PCP Patient Instructions - You were admitted to the hospital for COPD exacerbation. Your symptoms improved overnight and you are stable for discharge. - Please take the Prednisone as directed until you are done. This is a steroid medication that will help your respiratory symptoms. - You have multiple medical issues and thus need to take medications as directed. - Please take the medications as prescribed. I added some heart medications that will control your blood pressure. - Because you did not want any diabetic medications, we did not prescribe any med for diabetes. However, I highly encourage that you talk to your doctor about diabetes management as your blood sugar has been high. - Please STOP smoking or at least try to cut down. DO NOT SMOKE while you are on Oxygen. Continue to use the Oxygen at home as needed. - No change in the inhaler and nebulizer treatments. Continue as directed. - Follow up with your regular doctor in 1 week. - Go to the ER if you develop worsening shortness of breath, chest pain, cough, fever, chills, dizziness, or change in mental status. - The Hospice team will contact you regarding their evaluation for Hospice Care. You are doing well right now and will likely not meet the Hospice criteria. Follow-up Provider: Hansel Brito MD Follow-up with PCP in: 1 week Time spent 45 min Attending Statement Patient seen and examined with house staff. Agree with all attached documentation. copies to: Hansel Brito MD, Ngochanh H DO Sep 21, 2016 14:46 Cristóbal Rob MD Sep 21, 2016 16:54
--- NOTE | 2016-09-21 15:09 | NUR ---
Discharge Pt CBGs today were 251 and 366. Pt refused insulin injections despite being educated on them both at breakfast time and at lunch time. Pt states I just dont care. Pt discharged with by his side. Education was provided on diagnosis and future care. Discharge packet was printed and medications were educated on. Pt and demonstrated understanding of teaching. Prescriptions were given. Pt and this RN both signed the final sheet of the packet. IVs were removed. Telemetry leads were removed. Pt was escorted down to vehicle in wheelchair with staff assisting and spouse at his side.
--- NOTE | 2016-09-21 16:53 | NUR ---
Social Work Note: Initial Assessment/Discharge Data& Assessment: EMR reviewed. SW met with pt and pt at bedside to discuss discharge planning, SW role explained. Pt was provided with discharge planning checklist packet. Edison Chanel is a 71 year old male admitted on 09/20/2016 for dyspnea and COPD. Per MD pt is medically ready to discharge home via POV. Pt has [facility] and sees Joe Lowry MD for primary care. Pt lives in [place] and is independent at baseline with all ADL's including driving and medication management. Pt occasionally uses a cane at home. Pt does not have HH or SNF hx. PT does not have LTC insurance or VA benefits. Pt recently graduated from hospice services a few months ago. Pt has expressed interest in going back on Hospice. Per MD order, NO contacted Martha from Hospice who explained that they check in with pt every three months and was just reviewed last week. She explained that they will review pt clinicals from this hospitalization and contact pt if he meets criteria to sign pt back up for hospice. Pt notified and agreeable. MD notified and agreeable to this plan. Pt has DPOA/AD paperwork completed, SW requested a copy when possible. Pt to transport pt home. Pt and pt denies any other needs. No other discharge needs identified. Plan: Per MD pt is medically ready to discharge home via POV with Hospice to continue to check in every three months. Pt and pt denies any other needs. No other discharge needs identified. HILARY Teixeira Addendum: 09/21/16 at 1658 by SANJAY RUFFIN Amended: Links added.
== END 2016-09-21 15:10 | disposition hospice, home (50) | DRG 190 ==
LOC: SED 13:23 → PCC 16:55
PROVIDERS: ADMIT Hospitalist; ATTEND Hospitalist
DX: J44.1 Chronic obstructive pulmonary disease with (acute) exacerbation (principal); J96.21 Acute and chronic respiratory failure with hypoxia; I50.20 Unspecified systolic (congestive) heart failure; Z87.891 Personal history of nicotine dependence; Z99.81 Dependence on supplemental oxygen; Z86.718 Personal history of other venous thrombosis and embolism; E11.9 Type 2 diabetes mellitus without complications; Z91.19 Patient's noncompliance with other medical treatment and regimen; Z66 Do not resuscitate; R31.9 Hematuria, unspecified; R74.8 Abnormal levels of other serum enzymes

== ENCOUNTER 2016-09-24 15:40 | Inpatient (IN) | payer MEDICARE ==
[~2016-09-24] VITALS: Ht 182.9 cm; Wt 100.0 kg
[~2016-09-24 15:40] MED LIST changes: +ASPI81TA3 PO; +ATOR40TA69 PO; +PRE10 PO
[2016-09-24] MEDS ORDERED: Propofol Inj 1,000,000 MCG in IV Premix 1 EACH IV SCH ×2 (15:45→16:28)
[2016-09-24] MEDS ORDERED: Propofol 10,000 mCg/mL 100 mL Inj ONE (15:47)
[2016-09-24 15:55] LABS: BASOPHILS % (AUTO) 0.1 % (0-3); EOSINOPHILS % (AUTO) 0 % (0-5); MONOCYTES % (AUTO) 8.6 % (4-12); Mean Corpuscular Hemoglobin 28.7 pg (27.0-35.0); Mean Corpuscular Volume 95.5 fL (81-100); NEUTROPHILS % (AUTO) 83.6 % (40-74); Platelet Count 350 bil/L (150-400)
[2016-09-24] MEDS ORDERED: Midazolam 100 mg/100 mL Premix IV PRN (16:05)
[2016-09-24 16:06] VITALS: O2SAT 100
--- NOTE | 2016-09-24 16:09 | DRSVH ---
PROCEDURE: X-RAY CHEST ONE VIEW, PORTABLE ([id number]) INDICATIONS: resp failure TECHNIQUE: One view of the chest was acquired. COMPARISON: [facility], CR, XR CHEST 1VW (PORTABLE), 12/18/2015, 10:29. FINDINGS: Surgical changes and devices: An endotracheal tube is identified a with the tip positioned approximat jovana 1.8 cm above the level of the reese. Lungs and pleura: Blunting of the left costophrenic angle with increased attenuation at the left lung base is noted. Aeration of the right lung appears to be within normal limits and improved since the prior study. There is no pneumothorax. Mediastinum: Mediastinal contours appear normal. Heart size is borderline enlarged. Bones and chest wall: No suspicious bony lesions. Overlying soft tissues appear unremarkable. IMPRESSION: 1. Endotracheal tube is positioned approximately 1.8 cm above the reese. 2. Probable small left-sided pleural effusion with associated atelectasis and/or scarring at the lef t base. Superimposed pneumonia is difficult to exclude. 3. Borderline cardiomegaly without overt heart failure. Dictated by: Cuate Mcdonald M.D. on 09/24/2016 at 15:06 Approved by: Cuate Mcdonald M.D. on 09/24/2016 at 15:07
[2016-09-24 16:15] LABS: INR 1.11 ratio
[2016-09-24 16:23] LABS: Magnesium 2.3 mg/dL (1.6-2.6)
[2016-09-24] MEDS ORDERED: fentaNYL 2,500 mCg/250 mL 2,500 MCG in IV Premix 1 EACH IV PRN (16:28)
[2016-09-24] MEDS ORDERED: Senna-Docusate 8.6-50 mg Tablet PO PRN (16:30)
[2016-09-24] MEDS ORDERED: Polyethylene Glycol (PEG) 17 Gm Powder PO PRN (16:30)
[2016-09-24] MEDS ORDERED: Ondansetron 2 mg/mL 2 mL Inj IVPUSH PRN ×2 (16:30→17:00)
[2016-09-24] MEDS ORDERED: Alum-Mag Hydrox-Simeth 30 mL Suspension PO PRN (16:30)
[2016-09-24 16:39] LABS: TROPONIN T 0.19 ug/L (0.0-0.011)
--- NOTE | 2016-09-24 16:46 | ED.REPORT ---
HPI-General Illness Date of Service Sep 24, 2016 ED Provider: Roscoe Carlton MD Pt is a 71 year old male with a hx of COPD, HTN and pneumonia presenting to the ED via EMS in respiratory distress after being found unresponsive. He was last known well last night. Medics report O2 SATs in the 50s, so he was intubated in the field. He was recently admitted to the hospital for pneumonia and dyspnea and was discharged 5 days ago. His reports that he looked reasonably well at 1100 when he got out of bed and got into his chair. When she tried to wake him up in his chair at 1430 he was unresponsive. Nursing Notes Stated Complaint: RESPIRATORY FAILURE/INTUBATED Chief Complaint: Critical Care/Intubated Nursing Notes Reviewed: Yes Allergies: Coded Allergies: Penicillins (Verified Allergy, Severe, NEAR A CHILD, 09/20/16) Scheduled Aspirin Chew (Aspirin Chew) 81 Mg Chew 81 MG PO DAILY Atorvastatin Calcium (Atorvastatin Calcium) 40 Mg Tablet 40 MG PO HS Metoprolol Tartrate (Metoprolol Tartrate) 25 Mg Tablet 25 MG PO BID Morphine Sulfate Oral Soln (Morphine Sulfate Oral Soln) 20 Mg/5 Ml Solution 5- 20 MG PO Q1H Prednisone (PredniSONE) 10 Mg Tablet 10 MG PO DAILY Take 4 tabs for 3 days, then taper to 3 tabs for 3 days, 2 tabs for 3 days, and 1 tab for 3 days. Ropinirole (Ropinirole) 0.25 Mg Tablet 0.5 MG PO HS Scopolamine (Transderm-Scop) 1 Each Patch.td72 1 EACH TD Q72H Scheduled PRN Albuterol Sulfate (Ventolin HFA Inhaler) 200 Puff/18 Gm Inhaler 2 PUFFS INH PRN For Shortness of Breath Beclomethasone Dipropionate (Qvar) 8.7 Gm Aer.w.adap 1 PUFF INH PRN For Shortness of Breath Beclomethasone Dipropionate (Qvar) 8.7 Gm Aer.w.adap 1 PUFF INH BID PRN PRN For Shortness of Breath Ipratropium/Albuterol Sulfate (Iprat-Albut 0.5-3(2.5) mg/3 mL Inhalant Soln) 3 Ml Ampul.neb 1 DOSE INH 1-5XDaily PRN PRN For Shortness of Breath Lorazepam (Lorazepam) 0.5 Mg Tablet 0.5 MG PO TID PRN PRN For Anxiety General Time Seen by MD: 15:39 Chief Complaint Other (Unresponsive) Hx Obtained From: Spouse, EMS Arrived By: Ambulance Sudden in Onset?: No Onset Occurred: 1 - 4 hours ago Symptom Duration: Since onset Recent Healthcare: Recent hospitalization Similar Sx Previous: No Past Medical History Past Medical History Notes: PCP: Dr. Dos Santos in [facility] Past Medical History ho ? DVT (completely unclear) Records from PCP obtain indicate: Hypertension Hematuria Flank pain COPD on O2, CPAP The PCPs records indicate on a multitude of visits that the patient has declined workup, labs, and is aware he may have cancer but has insisted that he "will not accept any cancer treatment" notes also indicate the patient's not been taking any of his medications and that he "just wants to smoke and enjoy himself and uses oxygen when he needs it" The notes in the great "high probably of atherosclerotic cardiovascular disease-but he is refused any intervention, will only take nitroglycerin when necessary, and is refused a chest x-ray" Reports: Asthma, COPD, Diabetes mellitus Past Surgical History Hiatal hernia Smoking History Current Every Day Smoker Social History Other Social History: Good social support, Occupation lives with , one story house Ambulatory Status Independent Review of Systems Unable to Obtain ROS Mental status, Intubated Full Review of Systems Neurologic: Reports: Change LOC Physical Exam Vital Signs Vital Signs Date Time Temp Pulse Resp B/P Pulse Ox O2 Delivery O2 Flow Rate FiO2 09/24/16 16:06 100 Initial VS: Reviewed Head / Eyes: Atraumatic Neck: Supple Extremities: Vascular intact, Neuro intact, No swelling, No tenderness Skin: Warm, Dry, No cyanosis General/Constitutional: Not toxic appearing ENT: Atraumatic Intubated Abdomen: Atraumatic Large ventral hernia, reducible Upper Extremities Upper Extremity / MS: Neurologic intact, Vascular intact Lower Extremity / Pelvis / MS: Neurologic intact, Vascular intact PSYCHIATRIC: Unresponsive Interpretation & Diagnostics Lab Results Interpretation Result Diagram: 09/24/16 1545 09/24/16 1545 Test 09/24/16 15:45 09/24/16 16:20 White Blood Count 14.8th/mm3 (3.8-10.1) Red Blood Count 4.92mil/mm3 (4.40-5.80) Hemoglobin 14.1g/dL (13.8-17.2) Hematocrit 47.0% (41.0-50.0) Mean Corpuscular Volume 95.5fL (81-100) Mean Corpuscular Hemoglobin 28.7pg (27.0-35.0) Mean Corpuscular Hemoglobin Concent 30.0% (32.0-37.0) Red Cell Distribution Width 15.2% (12.3-15.4) Platelet Count 350bil/L (150-400) Neutrophils (%) (Auto) 83.6% (40-74) Lymphocytes (%) (Auto) 7.4% (14-46) Monocytes (%) (Auto) 8.6% (4-12) Eosinophils (%) (Auto) 0% (0-5) Basophils (%) (Auto) 0.1% (0-3) Prothrombin Time 11.9sec (8.1-12.5) Prothromb Time International Ratio 1.11ratio Sodium Level 143mEq/L (134-144) Potassium Level 5.5mEq/L (3.5-5.2) Chloride Level 98mEq/L (97-108) Carbon Dioxide Level 29mmol/L (18-29) Blood Urea Nitrogen 46mg/dL (8-27) Creatinine 1.35mg/dL (0.76-1.27) Estimat Glomerular Filtration Rate 55mL/min (>59) Glucose Level 364mg/dL (60-99) Calcium Level 9.1mg/dL (8.5-10.1) Magnesium Level 2.3mg/dL (1.6-2.6) Total Bilirubin 0.7mg/dL (0.0-1.2) Aspartate Amino Transf (AST/SGOT) 378U/L (0-50) Alanine Aminotransferase (ALT/SGPT) 447U/L (0-44) Alkaline Phosphatase 84U/L (25-160) Troponin T 0.190ug/L (0.0-0.011) Total Protein 7.4g/dL (6.4-8.4) Albumin 4.2g/dL (3.4-5.0) Lipase 23U/L (13-60) Procalcitonin 0.08ng/mL (0.00-0.08) Lactic Acid Level 1.9mmol/L (0.4-2.0) ECG Interpretation ECG Interpretation: ST segment abnormality in v1-v6 and v2. Time: 16:01 Interpreted by: ED physician Normal ECG Interpretation: Normal rate (65) X-Ray Chest Interpretation Chest Xray Interpretation: IMPRESSION: 1. Endotracheal tube is positioned approximately 1.8 cm above the reese. 2. Probable small left-sided pleural effusion with associated atelectasis and/or scarring at the left base. Superimposed pneumonia is difficult to exclude. 3. Borderline cardiomegaly without overt heart failure. Dictated by: Cuate Mcdonald M.D. on 09/24/2016 at 15:06 REPEAT: IMPRESSION: 1. Tubes and lines as described. 2. No definite pneumothorax. 3. Left basilar changes are similar to the prior study. Dictated by: Cuate Mcdonald M.D. on 09/24/2016 at 15:55 View: Portable, 1 view Interpretation / Wet Read by: Interpret - Radiologist Procedures Central Line Placement Time: 14:06 Procedure Performed by: ED physician Consent / Setup / Site Prep: Consent from spouse, Time-out performed, Needle aspirate performed, Oxygen administered, Pulse oximeter applied, shellfish sorter applied, Hand hygiene observed, Standard surgical scrub, Max barrier precaution, Sterile drapes applied Procedural Sedation/Analgesia: Sedation: Propofol Side / Location / Ultrasound: Internal jugular right Post-Procedure / Complications: Antibiotic oint applied, Dressing placed, Condition improved, Tolerated procedure well, Patient stable Re-Eval/Medical Decision Med Decision/Clinical Course This patient arrives gravely ill. He had been intubated prior to arrival after having been found by his to be unresponsive and barely breathing. He was intubated prior to arrival and upon arrival though his pressure had been adequate, he became hypotensive and pressor support was required. He never needed CPR here in the emergency department. Norepinephrine was used as a pressor. Versed in small doses was used for sedation. Initially Y spoke with his she said that she wanted his status to be full code and all interventions. He is admitted to the CCU hospitalist team and taken to the ICU. Time of Eval: 15:51 Patient Status: Condition improved Re-Evaluation/Progress Note: Discussed the past history with the pt's . BP: 66/38 HR: 62 Time of Eval: 15:59 Patient Status: Condition improved Re-Evaluation/Progress Note: Prepared to place a central line. BP: 59/37 Easy IJ on the right. Time of Eval: 14:06 Patient Status: Condition improved Re-Evaluation/Progress Note: Placed a central line. Discussed the purpose of the central line with the pt's . Discussed plan for admission. Consultation : Referral / Consult Name: Cristóbal Rob MD Consulted With: Hospitalist Call Returned at: 16:36 Supervisor Modern Languages: Will see patient, Agrees with plan, Accepts admit Counseled Regarding: Diagnosis, Lab results, Need for follow-up, When/why to return to ED Discharge & Departure Primary Impression: Respiratory failure Chronicity: acute Respiratory failure complication: unspecified whether with hypoxia or hypercapnia Qualified Code: J96.00 - Acute respiratory failure , unspecified whether with hypoxia or hypercapnia Disposition: ADMITTED TO HOSPITAL Discharge Condition All VS Reviewed: Yes Condition: Improved Referrals: Joe Lowry MD (PCP) Crit Care Except Billable Proc Time Spent: 30-74 minutes Services Performed: Patient management by me, Time spent at bedside, Reviewing test results, Reviewing imaging, Discussing patient care, Documentation in record, Time with fam/surrogate Scribe Attestation Portions of this note were transcribed by Lidia Fong. I, Dr. Carlton personally performed the history, physical exam and medical decision-making; I reviewed and confirmed the accuracy of the information in the transcribed note. Signed by: Edith Menon, 09/24/2016 at 1720. copies to: Joe Lowry MD, Kirk H MD Sep 24, 2016 16:46 LIDIA FONG Sep 24, 2016 16:54
--- NOTE | 2016-09-24 16:50 | ABG ---
DateTimeAnalyzed 16:40:07 -_ pH ____7.246 - 7.350 7.450 pCO2 ___69.1__ -mmHg 35.0 45.0 pO2 391 -mmHg 69.0 116 HCO3- ___30.0__ -mmol/L 22.0 26.0 ABE ____2.2__ -mmol/L tHb ___11.6__ -g/dL O2Hb ___98.3__ -% COHb ____1.6__ -% 1.5 MetHb ____0.3__ -% FIO2 __100.0__ -% PEEP ____5.0__ -cmH2O Set_RR 20 -b/min Vt __500.0__ -L Drawn By as - Date/Time Notified____ 16:50:00 -_ Spontaneous_RR 20 -b/min Oxygen Device 1 VENTILATOR - Notified By AMS - Notified Whom DR KURT - K+ ____4.7__ -mmol/L Cristóbal test N/A -
--- NOTE | 2016-09-24 16:57 | DRSVH ---
PROCEDURE: X-RAY CHEST ONE VIEW, PORTABLE ([id number]) INDICATIONS: CENTERAL LINE PLACEMENT TECHNIQUE: One view of the chest was acquired. COMPARISON: [facility], CR, XR CHEST 1VW (PORTABLE), 09/24/2016, 15:35. FINDINGS: Surgical changes and devices: There has been placement of a right-sided central line catheter with th e tip overlying the mid superior vena cava. Endotracheal tube appears unchanged. Lungs and pleura: Aeration of the lungs is similar to the prior study. However, there continues to b e left basilar consolidation and obscuration of the left diaphragm with infrahilar airspace disease p resent. No definite pneumothorax is appreciated. Aeration of the right lung is probably unchanged. Mediastinum: Mediastinal contours appear normal. Heart size is normal. Bones and chest wall: No suspicious bony lesions. Overlying soft tissues appear unremarkable. IMPRESSION: 1. Tubes and lines as described. 2. No definite pneumothorax. 3. Left basilar changes are similar to the prior study. Dictated by: Cuate Mcdonald M.D. on 09/24/2016 at 15:55 Approved by: Cuate Mcdonald M.D. on 09/24/2016 at 15:56
[2016-09-24] MEDS ORDERED: fentaNYL 2,500 mCg/250 mL 2,500 MCG in IV Premix 1 EACH IV SCH (16:58)
[2016-09-24] MEDS ORDERED: Atropine 1% 5 mL Ophthalmic Solution SL PRN (17:00)
[2016-09-24] MEDS ORDERED: Haloperidol 5 mg/mL Inj IVPUSH PRN (17:00)
[2016-09-24] MEDS ORDERED: Glycopyrrolate 0.2 MG/ML 1mL Inj IVPUSH PRN (17:00)
--- NOTE | 2016-09-24 17:07 | PCM.HPMED ---
Subjective Date of Service Sep 24, 2016 Primary Provider: Admitting Physician: Cristóbal Rob MD Primary Care Physician: Joe Lowry MD Attending Physician: Cristóbal Rob MD Chief Complaint: Respiratory failure, intubated History of Present Illness: Edison Chanel is a 71 year old man with past medical history significant for severe emphysema on 2-3 L home O2, hematuria, and diabetes mellitus who was recently discharged from [facility] due to COPD exacerbation who presented today due to respiratory failure intubated in the field. Patient was previously on hospice due to his COPD but had graduated and stated his strong wishes to return to hospice and to pass away. The patient has consistently been DNR/DNI. This morning the patient was found unresponsive by his who called EMS. Upon arrival the patient had O2 saturation in 50s and was intubated per the patient's . The patient's reports that he looked well this morning up until 1100. The patient's denies any changes in his O2 needs or any acute changes from his baseline. A sepsis work up and protocol was initiated by the ED. The patient's and son arrive and after a brief discussion about the patient's previously stated wishes to not be intubated and proceed with hospice care the patient's and son decided to extubate the patient to comfort care. Review of Systems: A comprehensive review of systems could not be performed as the patient was intubated. Allergies Coded Allergies: Penicillins (Verified Allergy, Severe, NEAR A CHILD, 09/20/16) Home Medications Aspirin Chew (Aspirin Chew) 81 Mg Chew 81 MG PO DAILY Prescribed by: ELVIS HOFFMAN DO Atorvastatin Calcium (Atorvastatin Calcium) 40 Mg Tablet 40 MG PO HS Prescribed by: ELVIS HOFFMAN DO Metoprolol Tartrate (Metoprolol Tartrate) 25 Mg Tablet 25 MG PO BID (Reported) Morphine Sulfate Oral Soln (Morphine Sulfate Oral Soln) 20 Mg/5 Ml Solution 5- 20 MG PO Q1H Prescribed by: SHUBHAM ROWAN DO Prednisone (PredniSONE) 10 Mg Tablet 10 MG PO DAILY Take 4 tabs for 3 days, then taper to 3 tabs for 3 days, 2 tabs for 3 days, and 1 tab for 3 days. Prescribed by: ELVIS HOFFMAN DO Ropinirole (Ropinirole) 0.25 Mg Tablet 0.5 MG PO HS (Reported) Scopolamine (Transderm-Scop) 1 Each Patch.td72 1 EACH TD Q72H Prescribed by: SHUBHAM ROWAN DO As needed Albuterol Sulfate (Ventolin HFA Inhaler) 200 Puff/18 Gm Inhaler 2 PUFFS INH PRN For Shortness of Breath (Reported) Beclomethasone Dipropionate (Qvar) 8.7 Gm Aer.w.adap 1 PUFF INH PRN For Shortness of Breath (Reported) Beclomethasone Dipropionate (Qvar) 8.7 Gm Aer.w.adap 1 PUFF INH BID PRN PRN For Shortness of Breath (Reported) Ipratropium/Albuterol Sulfate (Iprat-Albut 0.5-3(2.5) mg/3 mL Inhalant Soln) 3 Ml Ampul.neb 1 DOSE INH 1-5XDaily PRN PRN For Shortness of Breath (Reported) Lorazepam (Lorazepam) 0.5 Mg Tablet 0.5 MG PO TID PRN PRN For Anxiety Prescribed by: SHUBHAM ROWAN DO PMH COPD Hematuria Smoking history possible history of DVT Hypertension Diabetes mellitus Surgical History Hiatal Hernia Surgical History Back surgery. Patient had other surgeries but he does not know. Family History Mother had COPD, it was her cause of . She also had DM. Father had NM at 58 yo. Social History Hx Alcohol Use: Yes (ONCE A WEEK) Hx Substance Use: No Hx Tobacco Use: Yes Smoking Status: Current Every Day Smoker Exam Vital Signs Vital Sign - Last Date Time Temp Pulse Resp B/P Pulse Ox O2 Delivery O2 Flow Rate FiO2 09/24/16 16:06 100 Exam General: older than stated age intubated and on mechanical ventilation HEENT: Normocephalic, atraumatic. ET tube in place. Neck: Supple with full range of motion. No jugular venous distension. No lymphadenopathy or thyromegaly. Right IJ in place Cardiovascular: Regular rate and rhythm with no murmurs, rubs, or gallops appreciated Pulmonary:Diffuse wheezing and crackles. Mechanically ventilated Abdomen: Bowel tones present. Soft, nontender, obese, nondistended. No hepatosplenomegaly or masses appreciated. Midline surgical hernia. Extremities: Mild-moderate pitting edema in the bilateral LE. No clubbing, cyanosis. Skin: Normal temperature, turgor, and texture; no rash, ulcers, or subcutaneous nodules appreciated. Neurological: Pupils pinpoint. Responding to painful stimulus. Normal muscle strength, tone, and bulk. Psychiatric: Intubated, unable to assess. Lab and Diagnostics Result Diagram: 09/24/16 1545 09/24/16 1545 X-Rays, CTs and MRIs X-RAY CHEST ONE VIEW, PORTABLE IMPRESSION: 1. Endotracheal tube is positioned approximately 1.8 cm above the reese. 2. Probable small left-sided pleural effusion with associated atelectasis and/ or scarring at the left base. Superimposed pneumonia is difficult to exclude. 3. Borderline cardiomegaly without overt heart failure. Dictated by: Cuate Mcdonald M.D. on 09/24/2016 at 15:06 Assessment & Plan Edison Chanel is a 71 year old man with past medical history significant for severe emphysema on 2-3 L home O2, hematuria, and diabetes mellitus who was recently discharged from [facility] due to COPD exacerbation who presented today due to respiratory failure intubated in the field. Acute on chronic hypoxemic respiratory failure likely secondary to severe COPD -Patient did not wish to be intubated and will be extubated to comfort care per patient's and son. -Pain control with IV morphine drip and IV midazolam for agitation. -Scopolamine path and atropine for secretions Patient admitted under inpatient status with imminent expected in the next few hours. VTE Prophylaxis Indicated: Contraindicated (comfort care) Resuscitation Status: DNR/DNI:Do Not Resuscitate/Intubate Time spent 60 minutes Attending Statement The patient was seen and examined with staff. Agree with all attached documentation. Shubham Rowan DO Sep 24, 2016 17:07 Cristóbal Rob MD Sep 24, 2016 17:51
--- NOTE | 2016-09-24 17:13 | NUR ---
Pt transported up to CCU from ED on crossvent. RT , RN and technical advisor with pt during transport.
[2016-09-24 17:17] VITALS: BP 70/52; PULSE 68; RESP 20; O2SAT 91
[2016-09-24] MEDS ORDERED: MORPHINE IV PRN ×2 (17:25→17:48)
[2016-09-24] MEDS ORDERED: SODIUM CHLORIDE 0.9% IV PRN (17:25)
[2016-09-24 17:30] VITALS: O2SAT 97
[2016-09-24] MEDS ORDERED: Morphine 100 mg/100 mL NS 100 MG in IV Premix 1 EACH IV PRN (17:51)
--- NOTE | 2016-09-24 18:02 | PCM.ADCARE ---
Advance Care Planning Note Purpose of Encounter: Discussed level of care and potential compassionate extubation. Parties in Attendance: Drs. Rob and Jorge. Patient's and son, Maxx. Decisional Capacity: Patient is intubated and sedated. Subjective: The patient was just discharged from the hospital several days prior. He admitted clear that he wanted to be DO NOT RESUSCITATE and DO NOT INTUBATE. His only goal was that come soon. He was in the process of reinitiating with hospice. Objective: The patient is intubated and sedated. He is hypotensive and received several liters of fluid and is on norepinephrine. A central line was also placed. Goals of Care Determinations: DO NOT RESUSCITATE The patient's family believes he did not want to be intubated. They now except compassionate extubation and allowing the patient to follow his own course. There except comfort care measures such as morphine drip. We will also withdraw all other advanced life support measures including norepinephrine drip Plan: Impression extubation, removal of vasopressors. Morphine drip for comfort. The patient will be transferred to the second floor and a morphine drip is being prepared. CODE STATUS: DO NOT RESUSCITATE Time Spent Adv.Care Plannin minutes Adv. Care Plan Documenation: As above Cristóbal Rob MD Sep 24, 2016 18:02
--- NOTE | 2016-09-24 18:57 | NUR ---
Pt arrives to CCU room 2014 at 1717 via ER angelique. and son present. Plan to initiate morphine gtt and proceed with compassionate extubation. Neurologically, pt grimaces to stimuli such as turns and has occasional myoclonic jerks mostly lower extremities but has no purposeful movements of upper extremities and does not require restraints. Suni and son Maxx are at bedside and are supportive of plan. Morphine gtt initiated at 5mg/h after 2.5mg bolus to complement the versed gtt at 1mg/h. Pt extubated at 1818 and at 1844 with son at bedside. [facility] was notified prior to arrival to floor. Ongoing postmortem care transferred to caustic cresylate shift superintendent RN.
--- NOTE | 2016-09-24 19:27 | NUR ---
Wallet, fishing license and many coins placed in bag and sent home with . Shorts and belt will accompany body to [facility].
--- NOTE | 2016-09-25 14:19 | PCM.DC.MEX ---
Discharge Summary Date of Service Sep 25, 2016 Dates of Hospitalization Date of Hospital Admission Sep 24, 2016 at 16:36 Date of Expiration: Sep 25, 2016 Time of Expiration: 18:44 Providers: Admitting Physician: Cristóbal Rob MD Primary Care Physician: Joe Lowry MD Attending Physician: Cristóbal Rob MD Diagnosis at Time of Acute respiratory failure with hypoxemia and hypercarbia Acute COPD exacerbation Chronic respiratory failure Consultations None Procedures XRay, CTs & MRIs X-RAY CHEST ONE VIEW, PORTABLE IMPRESSION: 1. Endotracheal tube is positioned approximately 1.8 cm above the reese. 2. Probable small left-sided pleural effusion with associated atelectasis and/ or scarring at the left base. Superimposed pneumonia is difficult to exclude. 3. Borderline cardiomegaly without overt heart failure. Dictated by: Cuate Mcdonald M.D. on 09/24/2016 at 15:06 Invasive Procedures Endotracheal intubation and EGD. The patient was Slightly Extubated after Meeting with the Family and Discussing His Wishes and Level Care. Right IJ Central Venous Catheter Placed and EGD. Brief History Edison Chanel is a 71 year old man with past medical history significant for severe emphysema on 2-3 L home O2, hematuria, and diabetes mellitus who was recently discharged from [facility] due to COPD exacerbation who presented today due to respiratory failure intubated in the field. Patient was previously on hospice due to his COPD but had graduated and stated his strong wishes to return to hospice and to pass away. The patient has consistently been DNR/DNI. This morning the patient was found unresponsive by his who called EMS. Upon arrival the patient had O2 saturation in 50s and was intubated per the patient's . The patient's reports that he looked well this morning up until 1100. The patient's denies any changes in his O2 needs or any acute changes from his baseline. A sepsis work up and protocol was initiated by the ED. The patient's and son arrive and after a brief discussion about the patient's previously stated wishes to not be intubated and proceed with hospice care the patient's and son decided to extubate the patient to comfort care. Hospital Course Edison hCanel is a 71 year old man with past medical history significant for severe emphysema on 2-3 L home O2, hematuria, and diabetes mellitus who was recently discharged from [facility] due to COPD exacerbation who presented today due to respiratory failure intubated in the field. Acute on chronic hypoxemic respiratory failure likely secondary to severe COPD -Patient did not wish to be intubated and will be extubated to comfort care per patient's and son. -Pain control with IV morphine drip and IV midazolam for agitation. -Scopolamine path and atropine for secretions Patient admitted under inpatient status with imminent expected in the next few hours. Exam Test 09/24/16 15:45 09/24/16 16:20 White Blood Count 14.8th/mm3 (3.8-10.1) Red Blood Count 4.92mil/mm3 (4.40-5.80) Hemoglobin 14.1g/dL (13.8-17.2) Hematocrit 47.0% (41.0-50.0) Mean Corpuscular Volume 95.5fL (81-100) Mean Corpuscular Hemoglobin 28.7pg (27.0-35.0) Mean Corpuscular Hemoglobin Concent 30.0% (32.0-37.0) Red Cell Distribution Width 15.2% (12.3-15.4) Platelet Count 350bil/L (150-400) Neutrophils (%) (Auto) 83.6% (40-74) Lymphocytes (%) (Auto) 7.4% (14-46) Monocytes (%) (Auto) 8.6% (4-12) Eosinophils (%) (Auto) 0% (0-5) Basophils (%) (Auto) 0.1% (0-3) Prothrombin Time 11.9sec (8.1-12.5) Prothromb Time International Ratio 1.11ratio Sodium Level 143mEq/L (134-144) Potassium Level 5.5mEq/L (3.5-5.2) Chloride Level 98mEq/L (97-108) Carbon Dioxide Level 29mmol/L (18-29) Blood Urea Nitrogen 46mg/dL (8-27) Creatinine 1.35mg/dL (0.76-1.27) Estimat Glomerular Filtration Rate 55mL/min (>59) Glucose Level 364mg/dL (60-99) Calcium Level 9.1mg/dL (8.5-10.1) Magnesium Level 2.3mg/dL (1.6-2.6) Total Bilirubin 0.7mg/dL (0.0-1.2) Aspartate Amino Transf (AST/SGOT) 378U/L (0-50) Alanine Aminotransferase (ALT/SGPT) 447U/L (0-44) Alkaline Phosphatase 84U/L (25-160) Troponin T 0.190ug/L (0.0-0.011) Total Protein 7.4g/dL (6.4-8.4) Albumin 4.2g/dL (3.4-5.0) Lipase 23U/L (13-60) Procalcitonin 0.08ng/mL (0.00-0.08) Lactic Acid Level 1.9mmol/L (0.4-2.0) Time spent 60 minutes Cristóbal Rob MD Sep 25, 2016 14:19
== END 2016-09-24 17:31 | disposition expired | DRG 189 ==
LOC: SED 15:40 → CCU 16:36 → UNDODISIN 18:44
PROVIDERS: ADMIT Hospitalist; ATTEND Hospitalist
PROC: 05HM33Z Insertion of Infusion Device into Right Internal Jugular Vein, Percutaneous Approach (ICD-10-PCS; principal; 2016-09-24)
PROC: 4A033R1 Measurement of Arterial Saturation, Peripheral, Percutaneous Approach (ICD-10-PCS; 2016-09-24)
DX: J96.21 Acute and chronic respiratory failure with hypoxia (principal); J44.1 Chronic obstructive pulmonary disease with (acute) exacerbation; Z79.82 Long term (current) use of aspirin; Z79.52 Long term (current) use of systemic steroids; Z86.718 Personal history of other venous thrombosis and embolism; F17.210 Nicotine dependence, cigarettes, uncomplicated; Z99.81 Dependence on supplemental oxygen; Z66 Do not resuscitate; Z51.5 Encounter for palliative care; J96.22 Acute and chronic respiratory failure with hypercapnia